=== PATIENT | female | born 1995 | race Hispanic/Latino ===

== ENCOUNTER 2017-12-26 18:06 | Emergency (ER) | payer OTHER | END 2017-12-26 18:34 | disposition home or self-care (01) | LOC: EDH 18:06 | DX: S29.012A Strain of muscle and tendon of back wall of thorax, initial encounter (principal); K08.89 Other specified disorders of teeth and supporting structures; X58.XXXA Exposure to other specified factors, initial encounter; Y93.89 Activity, other specified; Y92.89 Other specified places as the place of occurrence of the external cause; Y99.8 Other external cause status ==